=== PATIENT | male | born 1980 | race Caucasian/White ===

== ENCOUNTER 2016-10-13 23:33 | Emergency (ER) | payer SELFPAY ==
[~2016-10-13] VITALS: Ht 165.1 cm; Wt 73.0 kg
[2016-10-14] MEDS ORDERED: IBUPROFEN 400MG TABLET PO ONE (04:15)
[2016-10-14 04:45] VITALS: BP 128/96
== END 2016-10-14 04:58 | disposition left against medical advice (07) ==
LOC: ER 23:53
DX: M25.561 Pain in right knee (principal); F14.10 Cocaine abuse, uncomplicated
CPT/HCPCS: 99283; Z7610